=== PATIENT | male | born 1975 | race Caucasian/White ===

== ENCOUNTER → 2020-01-29 15:51 | Outpatient (CLI) | payer OTHER, SELFPAY ==
--- NOTE | ~2020-01-29 | XR_ITS ---
XR_CERV2-3V_CR DATE: 01/29/2020 16:03 INDICATION: Cervical disc disorder, radiculopathy of mid cervical region. TECHNIQUE: AP, lateral, swimmer views COMPARISON: 11/03/2010 cervical spine FINDINGS: Status post anterior and interbody spinal fusion at C5-6 since 11/03/2010. There is straightening and mild levoscoliosis of the cervical spine. C1 and C2 are normally aligned and the odontoid process appears intact. No fracture or dislocation or locked facet is evident. No prevertebral soft tissue swelling. There is mild anterolisthesis at C3-4. There is moderately severe degenerative disc disease at C6-7. There is degenerative change at the apophyseal joints of the mid and lower cervical spine. Uncoverteb ral joint spurring is noted in the mid and lower cervical spine as well, particularly at C5-6 and C6- 7. IMPRESSION: Straightening and mild levoscoliosis Status post anterior and interbody spinal fusion at C5-6 Mild anterolisthesis at C3-4 Moderately severe degenerative disc disease at C6-7 Reviewed, dictated and finalized at [facility]. Reviewed, dictated and finalized at [facility].
== END ==
PROVIDERS: PCP Family Medicine; Visit Provider Nurse Practitioner Gerontology
DX: M50.323 Other cervical disc degeneration at C6-C7 level (principal); Z98.1 Arthrodesis status
CPT/HCPCS: 72040

== ENCOUNTER 2023-04-12 06:11 | Day surgery (SDC) | payer OTHER, SELFPAY ==
[2023-04-02 10:38] VITALS: BMI 28.2
[2023-04-12 06:55] VITALS: BP 117/90; PULSE 96; RESP 18; TEMP 36.7; O2SAT 98
[2023-04-12] MEDS: LACTATED RINGERS 1,000 ML 150 ML IV CONT (07:10)
--- NOTE | 2023-04-12 07:13 | WPDANESEPPF ---
Anes - Initial Pre Proc Eval Procedure: Operation Date: 04/12/23 08:00 Proposed Procedures p Screening Colonoscopy - Mustapha Lane MD Date/Time: 04/12/23 07:13 Surgeon: Mustapha Lane MD Pre Op Diagnosis: Neoplasm Screening Patient Data Age: 47 Gender: M Height: 1.69 m Weight: 80.5 kg Allergies Allergy/AdvReac Type Severity Reaction Status Date / Time No Known Allergies Allergy Verified 04/02/23 10:37 Home Medications Medication Instructions Recorded Confirmed Type No Home Medications 04/02/23 04/02/23 History Patient hx anesthesia problems: none Family hx anesthesia problems: none Results Review: All pre-operative results and documents have been reviewed as part of the pre-operative evaluation. [facility] Social History Social History Smoking status: Former smoker Alcohol intake: current Substance use: never Substance use type: does not use Lack of Transportation: No Lack of Food: Never True Current Housing: I Have Housing Concerned About Future Housing: No Difficulty Paying Gas/Electric Bills: No Difficulty Paying for Meds: No Currently Unemployed: No Education: Bachelor's Degree Difficulty w/ Childcare or Family Care: No Living arrangements: with family Spiritual care concerns: No Anes - Eval Final PreProcedure Day of Procedure 04/12/23 07:13 Patient weight: overweight Heart: regular rate and rhythm Lungs: clear to auscultation Airway: Mallampati scale class II Neurological: alert and oriented Last oral intake: >/= 8 hours ASA classification: II Emergent: no Anesthetic plan: proceed Anesthesia type and monitoring: general GIVS and standard monitoring Results Review: All pre-operative results and documents have been reviewed as part of the pre-operative evaluation. Informed Consent: The patient's anesthetic plan and its attendant risks and benefits were discussed with the patient/family/POA. Questions were solicited and answers provided to the satisfaction of the patient/family/POA.
--- NOTE | 2023-04-12 07:48 | P.HP_ITS ---
History of Present Illness History of Present Illness Consent: Risks, benefits, and alternatives have been discussed and questions answered. Patient agrees to proceed with procedure. Chief complaint: Neoplasm Screening Narrative: Abhishek Islas is a 47 year old male here for first screening colonoscopy Review of Systems Constitutional: Constitutional: Denies headache(s) and Denies weakness Eyes: Eyes: Denies blurry vision ENT: Reports Normal hearing present, Denies headache(s) and Denies neck pain Cardiovascular: Cardiovascular: Denies chest pain and Denies dyspnea Respiratory: Respiratory: Denies dyspnea Gastrointestinal: Gastrointestinal: Reports no additional gastrointestinal complaints Genitourinary: Genitourinary: Denies dysuria Musculoskeletal: Musculoskeletal: Denies neck pain Integumentary/Breasts: Skin/Breast: Denies dry skin Neurologic: Reports Normal hearing present, Denies headache(s) and Denies w eakness Psychiatric: Psychiatric: Denies anxiety Endocrine: Endocrine: Denies change in body appearance Hematologic/Lymphatic: Hematologic/Lymphatic: Denies easy bleeding Allergic/Immunologic: Allergic/Immunologic: Denies urticaria PMFSH Social History Social History Smoking status: Former smoker Alcohol intake: current Substance use: never Substance use type: does not use Lack of Transportation: No Lack of Food: Never True Current Housing: I Have Housing Concerned About Future Housing: No Difficulty Paying Gas/Electric Bills: No Difficulty Paying for Meds: No Currently Unemployed: No Education: Bachelor's Degree Difficulty w/ Childcare or Family Care: No Living arrangements: with family Spiritual care concerns: No Meds Home Medications and Allergies Home Medications Medication Instructions Recorded Confirmed Type No Home Medications 04/02/23 04/12/23 History Allergies Allergy/AdvReac Type Severity Reaction Status Date / Time No Known Allergies Allergy Verified 04/12/23 07:21 Vital Signs Vital Signs - 24 hr 04/12/23 06:55 Temperature 98.0 F Pulse Rate 96 Respiratory Rate 18 Blood Pressure 117/90 Pulse Oximetry 98 Oxygen Delivery Room Air Exam Const: General: comfortable and no acute distress HENMT: Face/Nose/Sinus: Normal nares present Eyes: General: appearance normal, both eyes and all related structures Neck: Neck: no JVD Resp: Auscultation: clear to auscultation bilaterally Cardio: Rate: regular rate Rhythm: regular rhythm GI: Inspection: non-distended GI Palp: Yes Soft to palpation Skin: General skin exam: normal color Neuro: General: gait normal Speech: normal speech Extrem: General: normal to inspection Psych: Mental Status: mental status grossly normal Assessment and Plan Assessment and plan (1) Screening for malignant neoplasm of colon: Code(s): Z12.11 - Encounter for screening for malignant neoplasm of colon Status: Acute Assessment and Plan: colonoscopy
[2023-04-12 08:06] VITALS: BP 101/79; PULSE 84; RESP 16; O2SAT 99
--- NOTE | 2023-04-12 08:15 | WPDANESPN ---
Anes - Prog Note Post-Op Date/Time: 04/12/23 08:15 Cardiovascular status: normal Respiratory status: normal Airway patency: baseline Mental status: baseline Post-Op hydration status: normal Vital Signs: Last Vital Signs Temp 36.7 C 04/12/23 06:55 Pulse 96 04/12/23 06:55 Resp 18 04/12/23 06:55 BP 117/90 04/12/23 06:55 Pulse Ox 98 04/12/23 06:55 O2 Del Method Room Air 04/12/23 06:55 Pain Score (VAS): 0 I/O: Intake & Output 04/11/23 04/12/23 04/12/23 23:59 07:59 15:59 Intake Total 600 Balance 600 Patient Feedback: Patient satisfied with anesthetic care.
[2023-04-12 08:16] VITALS: BP 103/81; PULSE 80; RESP 16; O2SAT 97
[2023-04-12 08:26] VITALS: BP 109/84; PULSE 73; RESP 16; O2SAT 100
== END 2023-04-12 08:40 | disposition home or self-care (01) ==
PROVIDERS: PCP Family Medicine; Visit Provider Internal Medicine Gastroenterology
PROC: 0DJD8ZZ Inspection of Lower Intestinal Tract, Via Natural or Artificial Opening Endoscopic (ICD-10-PCS; CPT 45378; principal; 2023-04-12 08:00)
DX: Z12.11 Encounter for screening for malignant neoplasm of colon (principal); D12.4 Benign neoplasm of descending colon
CPT/HCPCS: 45380

== ENCOUNTER 2023-04-12 09:00 | Outpatient (NON) | payer OTHER, SELFPAY | END 2023-04-12 09:01 | disposition home or self-care (01) | PROVIDERS: PCP Family Medicine; Visit Provider Internal Medicine Gastroenterology | DX: Z12.11 Encounter for screening for malignant neoplasm of colon (principal); D12.6 Benign neoplasm of colon, unspecified | CPT/HCPCS: 88305 ==

== ENCOUNTER 2024-04-02 13:56 | Outpatient (CLI) | payer OTHER, SELFPAY ==
--- NOTE | ~2024-04-02 | XR_ITS ---
3 VIEWS LUMBAR SPINE Ordering provider: Viv Mina APRN History: . M79.18 - Myalgia, other site . Comparison: None. FINDINGS: VERTEBRAL BODIES: No visible fracture or subluxation. Degenerative changes of the spine. Mild levosco liosis. DISK SPACES: Narrowing of the disc L3-L4, L4-L5 and L5-S1. Multilevel facet joint disease. SOFT TISSUES: Normal. IMPRESSION: No acute osseous abnormality lumbar spine. Multilevel degenerative disc disease. Reviewed, dictated and finalized at [facility].
== END 2024-04-02 13:57 | disposition home or self-care (01) ==
LOC: MICIMG 13:57
PROVIDERS: PCP Family Medicine; Visit Provider Nurse Practitioner Adult Health
DX: M51.36 Other intervertebral disc degeneration, lumbar region (principal); M51.37 Other intervertebral disc degeneration, lumbosacral region
CPT/HCPCS: 72100

== ENCOUNTER 2024-04-17 10:04 | Outpatient (CLI) | payer OTHER, SELFPAY ==
--- NOTE | ~2024-04-17 | CT_ITS ---
EXAMINATION: CT abd pelvis lumbar w con DATE: 04/17/2024 10:34 INDICATION: Myalgia, other site. TECHNIQUE: Computed tomography (CT) of the abdomen and pelvis and lumbar spine was performed with 100 mL Omnipaque 350 intravenous contrast. Automated exposure control and iterative reconstruction techn ique were employed. The dose-length product was 890.37 mGy-cm. COMPARISON: Lumbar spine radiographs 04/02/2024 FINDINGS: CT ABDOMEN AND PELVIS: The visualized portions of the lung bases demonstrate mild atelectasis. No ple ural effusion. The heart size is normal. No pericardial effusion. There is mild bilateral gynecomasti a. The liver, gallbladder, spleen, pancreas, and adrenal glands are normal. There are cysts in the ki dneys measuring up to 1.8 cm on the left. There is an 11 mm hyperdense mass in left kidney. There is a 2 mm stone in right kidney. The prostate is mildly enlarged. There is prominent fat in left inguina l canal that may be a hernia. There is diverticulosis of the colon without evidence of diverticulitis . The appendix is normal. There are no dilated loops of bowel. There are no pathologically enlarged l ymph nodes. There is no free intraperitoneal fluid. CT LUMBAR SPINE: There is 13 degrees levoscoliosis of lumbar spine. Vertebral body heights are normal . There is mildly decreased disc height at L2-L3, moderately decreased disc height at L3-L4, and atiya rely decreased disc height at L4-L5 and L5-S1. The following disc levels are specifically discussed: L1-L2: The disc does not extend beyond the endplate margin. There is severe right and moderate left f acet joint osteoarthritis. There is no neural foraminal stenosis. There is no central canal stenosis. L2-L3: The disc is bulging. There is severe right and mild left facet joint osteoarthritis. There is mild bilateral neural foraminal stenosis. There is mild central canal stenosis. L3-L4: The disc is bulging. There is mild bilateral facet joint osteoarthritis. There is moderate rig ht and mild left neural foraminal stenosis. There is mild central canal stenosis. L4-L5: The disc is bulging. There is severe bilateral facet joint osteoarthritis. There is moderate b ilateral neural foraminal stenosis. There is mild central canal stenosis. L5-S1: The disc is bulging. There is severe bilateral facet joint osteoarthritis. There is moderate b ilateral neural foraminal stenosis. There is mild central canal stenosis. IMPRESSION: 1. 11 mm left kidney mass, which may be a hemorrhagic cyst or less likely renal cell carcinoma. Abdom en MRI without and with contrast is recommended. 2. Severe lumbar spondylosis. 3. Lumbar levoscoliosis. Reviewed, dictated and finalized at location [facility]. IMPRESSION: 1. 11 mm left kidney mass, which may be a hemorrhagic cyst or less likely renal cell carcinoma. Abdomen MRI without and with contrast is recommended. 2. Severe lumbar spondylosis. 3. Lumbar levoscoliosis.
== END 2024-04-17 10:05 | disposition home or self-care (01) ==
LOC: ANHIMG 10:07
PROVIDERS: PCP Family Medicine; Visit Provider Nurse Practitioner Adult Health
DX: M79.18 Myalgia, other site (principal); Z80.8 Family history of malignant neoplasm of other organs or systems
CPT/HCPCS: 72132; 74177; Q9967

== ENCOUNTER 2024-09-11 15:15 | Outpatient (CLI) | payer OTHER, SELFPAY ==
--- NOTE | ~2024-09-11 | US_ITS ---
US retroperitoneal comp Ordering provider: Rene Sewell MD History: . Renal Mass . Comparison: None. Technique: Ultrasound bilateral kidneys. Findings: RIGHT KIDNEY: Measures 10.6x 6.1x 5.2 cm in length which is normal in size. Anechoic area measuring 1 .2 x 1.1 x 1.1 cm suggestive of a cyst. No renal mass or visualized echogenic stones. Otherwise, norm al echotexture and contour. No hydronephrosis. Normal renal cortical thickness. LEFT KIDNEY: Measures 10.2x 6.1x 5.2 cm in length which is normal in size. Anechoic area measuring 1. 6 x 1.6 x 1.2 cm is seen suggestive of a cyst. Another one is seen measuring 1.7 x 1.5 x 1.6 cm. Calc ifications are seen in the kidney anteriorly adjacent to the cyst.. No renal mass or visualized echog enic stones. Otherwise, normal echotexture and contour. No hydronephrosis. Normal renal cortical thic kness. BLADDER: Normal. Ureteral jets were not seen bilaterally. IMPRESSION: Bilateral renal cysts with calcifications seen in the left mid pole cyst and in the adjacent parenchy ma. Reviewed, dictated and finalized at location [facility]. IN[employer]ATION [employer]CH[employer] IMPRESSION: Bilateral renal cysts with calcifications seen in the left mid pole cyst and in the adjacent parenchyma.
== END 2024-09-11 15:16 | disposition home or self-care (01) ==
LOC: MICIMG 15:16
PROVIDERS: PCP Family Medicine; Visit Provider Urology
DX: N28.1 Cyst of kidney, acquired (principal); N28.89 Other specified disorders of kidney and ureter
CPT/HCPCS: 76770